=== PATIENT | female | born 1970 | race American Indian/Alaskan Native ===

== ENCOUNTER → 2017-06-29 | Outpatient (CLI) | payer MEDICAID ==
[~2017-06-29] VITALS: Ht 160 cm; Wt 91.2 kg
[~2017-06-29] MED LIST: CHOL20009 PO; FERR-7 PO
== END | disposition home or self-care (01) ==
LOC: Rad HDHVI 08:07
PROVIDERS: ATTEND Internal Medicine Cardiovascular Disease
DX: I10 Essential (primary) hypertension (principal); E78.5 Hyperlipidemia, unspecified; R94.31 Abnormal electrocardiogram [ECG] [EKG]
CPT/HCPCS: 93017; 93306

== ENCOUNTER 2017-07-28 10:10 | Emergency (ER) | payer MEDICAID ==
[~2017-07-28] VITALS: Ht 160 cm; Wt 92.5 kg
[2017-07-28 11:14] VITALS: BP 119/74
[2017-07-28] MEDS ORDERED: PHENAZOPYRIDINE HCL 100 MG TAB PO ONE (12:00)
== END 2017-07-28 12:05 | disposition home or self-care (01) ==
LOC: ER 10:10
DX: N39.0 Urinary tract infection, site not specified (principal); Z79.899 Other long term (current) drug therapy

== ENCOUNTER 2021-02-14 18:43 | Emergency (ER) | payer MEDICAID, OTHER ==
[~2021-02-14] VITALS: Ht 160 cm; Wt 90.7 kg
[2021-02-14 22:03] VITALS: BP 148/75
== END 2021-02-14 23:28 | disposition home or self-care (01) ==
LOC: ER 18:46
DX: T20.20XA Burn of second degree of head, face, and neck, unspecified site, initial encounter (principal); T22.211A Burn of second degree of right forearm, initial encounter; T21.21XA Burn of second degree of chest wall, initial encounter; J45.909 Unspecified asthma, uncomplicated; I10 Essential (primary) hypertension; Z79.899 Other long term (current) drug therapy; Z98.51 Tubal ligation status; X10.2XXA Contact with fats and cooking oils, initial encounter; Y93.89 Activity, other specified; Y92.89 Other specified places as the place of occurrence of the external cause; Y99.8 Other external cause status

== ENCOUNTER 2021-09-29 09:39 | Emergency (ER) | payer MEDICAID, OTHER ==
[~2021-09-29] VITALS: Ht 160 cm; Wt 99.8 kg
[2021-09-29 09:43] VITALS: BP 157/80
[2021-09-29 10:31] LABS: Basophils # (auto) 0.1 10 ^3/uL (0-0.2); Basophils % (auto) 1.1 % (0.0-2.0); Eosinophils # (auto) 0.2 10 ^3/uL (0-0.8); Eosinophils % (auto) 4.4 % (0.0-7.0); Hematocrit 34.6 % (36.0-46.0); Hemoglobin 11.8 g/dL (12.2-16.2); Lymphocytes # (auto) 1.8 10 ^3/uL (0.4-5.4); Lymphocytes % (auto) 33.7 % (10.0-50.0); Mean Corpuscular Hemoglobin 30.5 pg (28.0-32.0); Mean Corpuscular Hgb Conc. 34.1 g/dL (32.0-36.0); Mean Corpuscular Volume 89.6 fL (80.0-100.0); Monocytes # (auto) 0.4 10 ^3/uL (0-1.3); Monocytes % (auto) 8.1 % (0.0-12.0); Neutrophils # (auto) 2.8 10 ^3/uL (1.6-8.6); Neutrophils % (auto) 52.7 % (37.0-80.0); Nucleated Red Blood Cells % 0.1 %; Red Blood Cells 3.86 10^6/uL (4.0-5.20); Red Cell Distribution Width 15.2 % (11.8-14.3); White Blood Cell 5.3 10^3/uL (4.4-10.8)
[2021-09-29 10:54] LABS: Potassium 3.6 mmol/L (3.5-5.1)
[2021-09-29 11:09] LABS: Urine Bacteria FEW /hpf (None Seen); Urine Blood Negative /uL (Negative); Urine Specific Gravity 1.015 (1.001-1.035); Urine WBC 2 /hpf (0 - 5)
[2021-09-29 11:11] LABS: Albumin 3.3 g/dL (3.4-5.0); BUN/Creatinine Ratio 11.3; Bilirubin, Total 0.5 mg/dL (0.2-1.0); Calcium 8.5 mg/dL (8.5-10.1); Magnesium 1.9 mg/dL (1.6-2.6); Total Protein 6.8 g/dL (6.4-8.2)
== END 2021-09-29 13:53 | disposition left against medical advice (07) ==
LOC: ER 09:39
DX: R07.89 Other chest pain (principal); I10 Essential (primary) hypertension; J45.909 Unspecified asthma, uncomplicated; E78.5 Hyperlipidemia, unspecified; Z79.899 Other long term (current) drug therapy
CPT/HCPCS: 36415; 71046; 80053; 81001; 83735; 84484; 85025

== ENCOUNTER 2023-09-21 19:56 | Inpatient (IN) | payer MEDICAID ==
[~2023-09-21] VITALS: Ht 160 cm; Wt 99.4 kg
[2023-09-21 20:23] LABS: Basophils # (auto) 0.1 10 ^3/uL (0-0.2); Basophils % (auto) 0.7 % (0.0-2.0); Eosinophils # (auto) 0.4 10 ^3/uL (0-0.8); Eosinophils % (auto) 3.9 % (0.0-7.0); Hemoglobin 13.1 g/dL (12.2-16.2); Lymphocytes # (auto) 4.2 10 ^3/uL (0.4-5.4); Lymphocytes % (auto) 39.7 % (10.0-50.0); Mean Corpuscular Hemoglobin 30.5 pg (28.0-32.0); Mean Corpuscular Hgb Conc. 33.6 g/dL (32.0-36.0); Monocytes # (auto) 0.7 10 ^3/uL (0-1.3); Monocytes % (auto) 6.6 % (0.0-12.0); Neutrophils # (auto) 5.2 10 ^3/uL (1.6-8.6); Neutrophils % (auto) 49.1 % (37.0-80.0); Red Blood Cells 4.29 10^6/uL (4.0-5.20); Red Cell Distribution Width 13.9 % (11.8-14.3); White Blood Cell 10.6 10^3/uL (4.4-10.8)
[2023-09-21 20:40] LABS: Alanine Aminotransferase 44 U/L (7-40); Albumin 4.2 g/dL (3.2-4.8); Alkaline Phosphatase 138 U/L (46-116); Anion Gap 7 (5-15); Aspartate Aminotransferase 37 U/L (13-40); BUN/Creatinine Ratio 16.2 (10.0-20.0); Bilirubin, Total 0.3 mg/dL (0.2-1.0); Blood Urea Nitrogen 12 mg/dL (9-23); Calcium 9.6 mg/dL (8.7-10.4); Carbon Dioxide 24 mmol/L (20-30); Chloride 109 mmol/L (98-107); Glucose 99 mg/dL (74-106); Potassium 3.7 mmol/L (3.5-5.1); Sodium 140 mmol/L (136-145); Total Protein 6.9 g/dL (5.7-8.2)
[2023-09-21 22:07] LABS: Urine Bacteria NONE SEEN /hpf (None Seen); Urine Blood Negative /uL (Negative); Urine Clarity Clear (Clear); Urine Color Yellow (Yellow); Urine Protein, UAD Negative (Negative); Urine Specific Gravity 1.025 (1.001-1.035); Urine Urobilinogen Normal (Negative); Urine WBC 7 /hpf (0 - 5); Urine pH 5.5 (5.0-8.0)
[2023-09-22] VITALS (10 sets, daily range): BP systolic 106–124; BP diastolic 57–80; PULSE 66–78; RESP 11–20; TEMP 97.6–98.1; O2SAT 93–99
[2023-09-22] MEDS: HYDROcodone-ACET 10/325MG TAB PO ONE (01:15)
[2023-09-22] MEDS: NITROFURANTOIN 100 mg CAP PO ONE (01:49)
[2023-09-22] MEDS ORDERED: HYDROcodone-ACET 5/325MG TAB PO PRN (02:00)
[2023-09-22] MEDS ORDERED: DOCUSATE SOD 100 MG CAP PO PRN (02:00)
[2023-09-22] MEDS ORDERED: ONDANSETRON HCL 4 MG/2 ML VIAL IV PRN (02:00)
[2023-09-22] MEDS ORDERED: NITROGLYCERIN 0.4 MG SL TAB SL PRN (02:00)
[2023-09-22] MEDS ORDERED: MORPHINE SULFATE INJ 2 MG/ml SYRG IV PRN (02:00)
[2023-09-22] MEDS: ASPirin 81 mg TAB PO ONE ×2 (02:21→09:00)
[2023-09-22] MEDS: ACETAMINOPHEN 325 MG TAB PO PRN (02:22)
[2023-09-22 05:02] LABS: Basophils # (auto) 0.1 10 ^3/uL (0-0.2); Basophils % (auto) 0.8 % (0.0-2.0); Eosinophils # (auto) 0.3 10 ^3/uL (0-0.8); Eosinophils % (auto) 3.1 % (0.0-7.0); Hematocrit 37.5 % (36.0-46.0); Hemoglobin 12.8 g/dL (12.2-16.2); Lymphocytes % (auto) 32.2 % (10.0-50.0); Mean Corpuscular Hemoglobin 30.9 pg (28.0-32.0); Mean Corpuscular Volume 90.7 fL (80.0-100.0); Monocytes # (auto) 0.5 10 ^3/uL (0-1.3); Monocytes % (auto) 5.6 % (0.0-12.0); Neutrophils # (auto) 5.4 10 ^3/uL (1.6-8.6); Neutrophils % (auto) 58.3 % (37.0-80.0); Red Blood Cells 4.13 10^6/uL (4.0-5.20); Red Cell Distribution Width 13.8 % (11.8-14.3); White Blood Cell 9.3 10^3/uL (4.4-10.8)
[2023-09-22 05:18] LABS: Alanine Aminotransferase 40 U/L (7-40); Albumin 3.9 g/dL (3.2-4.8); Alkaline Phosphatase 129 U/L (46-116); Anion Gap 5 (5-15); Aspartate Aminotransferase 34 U/L (13-40); BUN/Creatinine Ratio 15.2 (10.0-20.0); Blood Urea Nitrogen 10 mg/dL (9-23); Calcium 9.3 mg/dL (8.5-10.1); Carbon Dioxide 26 mmol/L (20-30); Chloride 109 mmol/L (98-107); Glucose 96 mg/dL (74-106); Potassium 3.7 mmol/L (3.5-5.1); Sodium 140 mmol/L (136-145)
[2023-09-22 05:19] LABS: Bilirubin, Total 0.5 mg/dL (0.2-1.0); Total Protein 6.2 g/dL (5.7-8.2)
[2023-09-22] MEDS: HEPARIN DRIP/D5W 100UNITS/ML 250 ML IV SCH (08:30)
[2023-09-22] MEDS ORDERED: hydrALAZINE HCL 20 MG/ML VL IV PRN (08:45)
[2023-09-22 08:54] LABS: INR 1.01 (0.9-1.15); Partial Thromboplastin Time 26.2 SEC (24.5-34.5); Prothrombin Time 10.6 sec (9.3-11.8)
[2023-09-22] MEDS: HEPARIN SODIUM (PORCINE) 5000 UNITS/ML 1ML VIAL IV ONE ×2 (08:56→09:17)
[2023-09-22] MEDS: ASPirin 81 mg TAB PO SCH (08:58)
[2023-09-22 09:01] LABS: Triglycerides 114 mg/dL (< 150)
[2023-09-22] MEDS: CLOPIDOGREL BISULFATE 75 MG TAB PO ONE (09:01)
[2023-09-22 09:02] LABS: LDL Cholesterol 149 mg/dL (< 100)
[2023-09-22 09:03] LABS: Cholesterol 199 mg/dL (< 200); HDL Cholesterol 44 mg/dL (40-59)
[2023-09-22] MEDS: cefTRIAXone 1GM/50ML D5W 50 ML IV SCH (09:04)
[2023-09-22] MEDS ORDERED: HEPARIN SODIUM (PORCINE) 5000 UNITS/ML 1ML VIAL SC SCH (10:00)
[2023-09-22 14:52] LABS: INR 1.02 (0.9-1.15); Partial Thromboplastin Time 49.8 SEC (24.5-34.5); Prothrombin Time 10.7 sec (9.3-11.8)
[2023-09-22] MEDS: ANGIOMAX 250 MG VIAL IV ONE (15:27)
[2023-09-22] MEDS: HEPARIN SODIUM (PORCINE) 5000 UNITS/ML 1ML VIAL ONE (15:27)
[2023-09-22] MEDS: VERAPAMIL 2.5MG/ML INJ 2ML VIAL IV ONE (15:28)
[2023-09-22] MEDS: MIDAZOLAM HCL 2MG/2ML 2ml VIAL (1mg/ml) ONE (15:28)
[2023-09-22] MEDS: SODIUM CHL 0.9% 50 ML ONE (15:28)
[2023-09-22] MEDS: LIDOCAINE 2%HCL (LOCAL ANESTH.) INJ 20ML MDV ONE (15:28)
[2023-09-22] MEDS: fentaNYL CITRATE 100 MCG/2 ML VL ONE (15:28)
[2023-09-22 20:29] LABS: INR 1.02 (0.9-1.15); Prothrombin Time 10.7 sec (9.3-11.8)
[2023-09-22] MEDS: ATORVASTATIN 20 MG TAB PO SCH (21:08)
[2023-09-23 05:00] VITALS: BP 107/68; PULSE 65; RESP 20; TEMP 98.1; O2SAT 93
[2023-09-23 06:24] LABS: Basophils # (auto) 0.1 10 ^3/uL (0-0.2); Basophils % (auto) 0.9 % (0.0-2.0); Eosinophils # (auto) 0.2 10 ^3/uL (0-0.8); Eosinophils % (auto) 3.4 % (0.0-7.0); Hematocrit 39.6 % (36.0-46.0); Hemoglobin 13.3 g/dL (12.2-16.2); Lymphocytes # (auto) 2.2 10 ^3/uL (0.4-5.4); Lymphocytes % (auto) 32.1 % (10.0-50.0); Mean Corpuscular Hgb Conc. 33.6 g/dL (32.0-36.0); Mean Corpuscular Volume 92.5 fL (80.0-100.0); Monocytes # (auto) 0.5 10 ^3/uL (0-1.3); Monocytes % (auto) 7.8 % (0.0-12.0); Neutrophils # (auto) 3.8 10 ^3/uL (1.6-8.6); Neutrophils % (auto) 55.8 % (37.0-80.0); Red Blood Cells 4.28 10^6/uL (4.0-5.20); Red Cell Distribution Width 13.9 % (11.8-14.3); White Blood Cell 6.8 10^3/uL (4.4-10.8)
[2023-09-23 06:33] LABS: Alanine Aminotransferase 33 U/L (7-40); Albumin 3.9 g/dL (3.2-4.8); Alkaline Phosphatase 119 U/L (46-116); Anion Gap 6 (5-15); BUN/Creatinine Ratio 12.2 (10.0-20.0); Blood Urea Nitrogen 10 mg/dL (9-23); Calcium 8.9 mg/dL (8.7-10.4); Carbon Dioxide 26 mmol/L (20-30); Chloride 109 mmol/L (98-107); Glucose 95 mg/dL (74-106); Potassium 4.3 mmol/L (3.5-5.1); Sodium 141 mmol/L (136-145)
[2023-09-23 06:34] LABS: Aspartate Aminotransferase 29 U/L (13-40); Bilirubin, Total 0.6 mg/dL (0.2-1.0); Total Protein 6.7 g/dL (5.7-8.2)
[2023-09-23 08:00] VITALS: PULSE 63
[2023-09-23 08:06] VITALS: PULSE 73; RESP 18; O2SAT 95
[2023-09-23 08:57] VITALS: BP 113/63; PULSE 67; RESP 16; TEMP 98.1; O2SAT 94
[2023-09-23 12:35] VITALS: BP 124/66; PULSE 67; RESP 20; TEMP 98.2; O2SAT 94
[2023-09-23] MEDS ORDERED: ATO40T PO (14:09)
[2023-09-23 14:26] VITALS: TEMP 36.8
== END 2023-09-23 16:00 | disposition home or self-care (01) | DRG 192 ==
LOC: ER 19:56 → TELE 09-22 02:10 → TELE-WESTW 09-22 17:30
PROVIDERS: ADMIT Nurse Practitioner Family; ATTEND Internal Medicine
PROC: 4A023N7 Measurement of Cardiac Sampling and Pressure, Left Heart, Percutaneous Approach (ICD-10-PCS; principal; 2023-09-22)
PROC: B211YZZ Fluoroscopy of Multiple Coronary Arteries using Other Contrast (ICD-10-PCS; 2023-09-22)
PROC: B215YZZ Fluoroscopy of Left Heart using Other Contrast (ICD-10-PCS; 2023-09-22)
DX: I16.0 Hypertensive urgency (principal); I50.31 Acute diastolic (congestive) heart failure; I21.A1 Myocardial infarction type 2; I11.0 Hypertensive heart disease with heart failure; E66.9 Obesity, unspecified; E78.5 Hyperlipidemia, unspecified; N39.0 Urinary tract infection, site not specified; K21.9 Gastro-esophageal reflux disease without esophagitis; K80.20 Calculus of gallbladder without cholecystitis without obstruction; J45.909 Unspecified asthma, uncomplicated; R73.03 Prediabetes; Z82.49 Family history of ischemic heart disease and other diseases of the circulatory system; Z68.38 Body mass index [BMI] 38.0-38.9, adult
CPT/HCPCS: 36415; 71045; 71275; 80053; 80061; 81001; 83036; 84443; 84484; 84702; 85025; 85610; 85730; 87086; 93005; 93306; 93458; 99152; G0378; J2250